=== PATIENT | male | born 1955 | race Caucasian/White ===

== ENCOUNTER 2017-09-19 20:19 | Observation (INO) | payer OTHER ==
[2017-09-20] MEDS: ALBUTEROL 0.083% (NEB) 2.5 MG/3 ML AMP NEB (00:37)
[2017-09-20] MEDS: IPRATROPIUM (NEB) 0.5 MG/2.5 ML AMP NEB (00:37)
[2017-09-20 00:54] LABS: AADO2 Arterial 88.7 mmHg (7.0-24.0); Allen Test ACCEPTAB; Arterial Base Excess 1.6 mmol/L (-3.0-3); Arterial Blood Gas Oxygen Sat 95.1 mmHG (95.0-98.0); Arterial COHb 0.5 % (0.0-3.0); Arterial Fraction of Oxyhgb 94.4 % (93.0-99.0); Arterial HCO3 26.5 mmol/L (22.0-26.0); Arterial MetHb 0.2 % (0.0-1.5); Arterial Total Hemglobin 14.4 g/dl (12.0-18.0); Arterial pCO2 42.5 mmhg (35-45); MODE NASAL CANNULA; Site Right Radial
[2017-09-20 01:02] LABS: ADD MAN DIFF? NO
[2017-09-20 01:03] LABS: BASOPHIL # 0.1 10^3/ul (0.0-0.1); EOSINOPHILS # 0.7 10^3/ul (0.0-0.5); EOSINOPHILS % 7.5 % (0.0-7.0); HEMATOCRIT 40.9 % (42.0-52.0); HEMOGLOBIN 14.2 g/dl (14.0-18.0); LYMPHOCYTES # 2.3 10^3/ul (0.8-2.9); LYMPHOCYTES % 25.8 % (15.0-51.0); MEAN CORPUSCULAR HEMOGLOBIN 34.4 pg (29.0-33.0); MEAN CORPUSCULAR HGB CONC 34.7 g/dl (32.0-37.0); MEAN PLATELET VOLUME 9.3 fl (7.4-10.4); MONOCYTES % 11.9 % (0.0-11.0); NEUTROPHIL # 4.6 10^3/ul (1.6-7.5); NEUTROPHILS % 52.9 % (39.0-77.0); PLATELET COUNT 275 10^3/UL (140-415); RED BLOOD COUNT 4.13 10^6/ul (4.70-6.10); RED CELL DISTRIBUTION WIDTH 12.4 % (11.5-14.5)
[2017-09-20 01:03] LABS: WHITE BLOOD COUNT 8.8 10^3/ul (4.8-10.8)
[2017-09-20 01:24] LABS: ALANINE AMINOTRANSFERASE 31 IU/L (13-69); ALBUMIN/GLOBULIN RATIO 0.97; ALKALINE PHOSPHATASE 93 IU/L (42-121); ANION GAP 15 (8-16); ASPARTATE AMINO TRANSFERASE 21 IU/L (15-46); BILIRUBIN,INDIRECT 0.1 mg/dl (0-1.1); BILIRUBIN,TOTAL 0.1 mg/dl (0.2-1.3); BLOOD UREA NITROGEN 14 mg/dl (7-20); CALCIUM 8.9 mg/dl (8.4-10.2); CARBON DIOXIDE 29 mmol/L (21-31); CHLORIDE 93 mmol/L (97-110); CREATININE 0.79 mg/dl (0.61-1.24); GLUCOSE 93 mg/dl (70-220); POTASSIUM 4.2 mmol/L (3.5-5.1); SODIUM 133 mmol/L (135-144); TOTAL PROTEIN 8.1 g/dl (6.1-8.1)
[2017-09-20 01:35] LABS: B-TYPE NATRIURETIC PEPTIDE 107 PG/ML (0-125)
[2017-09-20 01:36] LABS: INR 1.01; PROTIME 13.4 Sec (11.9-14.9)
[2017-09-20 01:37] LABS: PARTIAL THROMBOPLASTIN TIME 30.1 Sec (25.0-35.0)
[2017-09-20 01:49] LABS: TROPONIN-I < 0.012 ng/ml (0.00-0.12)
[2017-09-20] MEDS: FUROSEMIDE 40 MG INJ IV ×3 (02:09→18:25)
[2017-09-20] MEDS ORDERED: LEVOFLOXACIN 750MG/D5W (PMX) 150 ML IVPB (02:10)
[2017-09-20] MEDS ORDERED: HYDROCODONE/APAP (5/325) TAB PO (02:30)
[2017-09-20] MEDS ORDERED: NACL 0.9% 3 ML SYG IV (02:30)
[2017-09-20] MEDS ORDERED: ACETAMINOPHEN 325 MG TAB PO (02:30)
[2017-09-20] MEDS ORDERED: ALBUTEROL/IPRATROPIUM (NEB) 3 ML AMP HHN (02:30)
[2017-09-20] MEDS ORDERED: NA PHOSPHATE/BIPHOS 133 ML ENEMA PR (02:30)
[2017-09-20] MEDS ORDERED: ONDANSETRON 4 MG INJ IV (02:30)
[2017-09-20] MEDS ORDERED: morphine 2 MG INJ IV (02:30)
[2017-09-20] MEDS ORDERED: DOCUSATE SODIUM 100 MG CAP PO (02:30)
[2017-09-20] MEDS ORDERED: MAGNESIUM HYDROXIDE 30ML CUP PO (02:30)
[2017-09-20] MEDS ORDERED: LORAZEPAM 2 MG INJ IV (02:30)
[2017-09-20] MEDS ORDERED: NITROGLYCERIN (SL) 0.4 MG TAB SL (02:30)
[2017-09-20] MEDS ORDERED: hydrALAzine 20 MG INJ IV (02:30)
[2017-09-20 02:38] LABS: B-TYPE NATRIURETIC PEPTIDE 104 PG/ML (0-125)
[2017-09-20 03:35] LABS: FREE T4 (FREE THYROXINE) 1.35 ng/dl (0.78-2.44)
[2017-09-20] MEDS: LEVOFLOXACIN 750MG/D5W (PMX) 150 ML IVPB (04:57)
[2017-09-20] MEDS: PANTOPRAZOLE (EC) 40 MG TAB PO (05:44)
[2017-09-20] MEDS: HEPARIN 5,000 UNIT/0.5 ML VIAL SC ×2 (12:22→21:09)
[2017-09-20] MEDS: SOD CHLORIDE 0.9% 100 ML (15:26)
[2017-09-20] MEDS: IOHEXOL 300MG/ML 150 ML BTL (15:26)
[2017-09-21 04:50] LABS: ADD MAN DIFF? NO
[2017-09-21 04:53] LABS: BASOPHIL # 0.1 10^3/ul (0.0-0.1); BASOPHILS % 1.1 % (0.0-2.0); EOSINOPHILS # 0.7 10^3/ul (0.0-0.5); EOSINOPHILS % 9.5 % (0.0-7.0); HEMATOCRIT 39.1 % (42.0-52.0); HEMOGLOBIN 14.2 g/dl (14.0-18.0); LYMPHOCYTES # 2.1 10^3/ul (0.8-2.9); LYMPHOCYTES % 26.9 % (15.0-51.0); MEAN CORPUSCULAR HEMOGLOBIN 35.2 pg (29.0-33.0); MEAN CORPUSCULAR HGB CONC 36.3 g/dl (32.0-37.0); MEAN PLATELET VOLUME 9.2 fl (7.4-10.4); MONOCYTES % 12.6 % (0.0-11.0); NEUTROPHIL # 3.8 10^3/ul (1.6-7.5); NEUTROPHILS % 48.9 % (39.0-77.0); PLATELET COUNT 261 10^3/UL (140-415); RED BLOOD COUNT 4.03 10^6/ul (4.70-6.10); RED CELL DISTRIBUTION WIDTH 12.4 % (11.5-14.5)
[2017-09-21 04:53] LABS: WHITE BLOOD COUNT 7.8 10^3/ul (4.8-10.8)
[2017-09-21 05:24] LABS: CHOLESTEROL 117 mg/dl (100-200)
[2017-09-21 05:24] LABS: CHOL/HDL RATIO 3.6 RATIO; HDL CHOLESTEROL 32 mg/dl (30-78); LDL CHOLESTEROL,CALCULATED 70 mg/dl; TRIGLYCERIDES 74 mg/dl (0-149)
[2017-09-21] MEDS: FUROSEMIDE 40 MG INJ IV (05:24)
[2017-09-21] MEDS: PANTOPRAZOLE (EC) 40 MG TAB PO (05:25)
[2017-09-21] MEDS: LEVOFLOXACIN 750MG/D5W (PMX) 150 ML IVPB (05:25)
[2017-09-21 05:37] LABS: ANION GAP 14 (8-16); BLOOD UREA NITROGEN 18 mg/dl (7-20); CALCIUM 8.9 mg/dl (8.4-10.2); CARBON DIOXIDE 29 mmol/L (21-31); CHLORIDE 93 mmol/L (97-110); CREATININE 0.85 mg/dl (0.61-1.24); GLUCOSE 91 mg/dl (70-220); MAGNESIUM 2.1 mg/dl (1.7-2.5); PHOSPHORUS 4.9 mg/dl (2.5-4.9); SODIUM 132 mmol/L (135-144)
[2017-09-21 07:14] LABS: HEMOGLOBIN A1C 5.4 % (0-5.9)
[2017-09-21] MEDS: HEPARIN 5,000 UNIT/0.5 ML VIAL SC (08:57)
== END 2017-09-21 12:15 | disposition home or self-care (01) ==
LOC: E/R 20:19 → MS3 09-20 01:47
DX: J84.112 Idiopathic pulmonary fibrosis (principal); I10 Essential (primary) hypertension
CPT/HCPCS: 36415; 36600; 71045; 71260; 80048; 80053; 80061; 82803; 83036; 83735; 83880; 84100; 84439; 84443; 84484; 85025; 85610; 85730; 93005; 93306; 94664; 96374; 99285-25

== ENCOUNTER 2017-10-04 11:01 | Inpatient (IN) | payer OTHER ==
[2017-10-04] MEDS: IPRATROPIUM (NEB) 0.5 MG/2.5 ML AMP HHN (11:44)
[2017-10-04] MEDS: LEVALBUTEROL (NEB) 1.25 MG/0.5 ML AMP HHN (11:44)
[2017-10-04] MEDS: METHYLPREDNISOLONE 125 MG INJ IV ×2 (11:47→11:52)
[2017-10-04 11:50] LABS: ADD MAN DIFF? NO
[2017-10-04 11:57] LABS: WHITE BLOOD COUNT 10.3 10^3/ul (4.8-10.8)
[2017-10-04 11:57] LABS: BASOPHIL # 0.1 10^3/ul (0.0-0.1); BASOPHILS % 0.7 % (0.0-2.0); EOSINOPHILS # 0.3 10^3/ul (0.0-0.5); EOSINOPHILS % 2.6 % (0.0-7.0); HEMOGLOBIN 13.6 g/dl (14.0-18.0); LYMPHOCYTES # 1.5 10^3/ul (0.8-2.9); LYMPHOCYTES % 14.8 % (15.0-51.0); MEAN CORPUSCULAR HGB CONC 34.9 g/dl (32.0-37.0); MEAN CORPUSCULAR VOLUME 100.3 fl (82.0-101.0); MEAN PLATELET VOLUME 9.2 fl (7.4-10.4); MONOCYTE # 1.1 10^3/ul (0.3-0.9); MONOCYTES % 11.1 % (0.0-11.0); NEUTROPHIL # 7.2 10^3/ul (1.6-7.5); NEUTROPHILS % 70.1 % (39.0-77.0); PLATELET COUNT 283 10^3/UL (140-415); RED BLOOD COUNT 3.89 10^6/ul (4.70-6.10); RED CELL DISTRIBUTION WIDTH 12.9 % (11.5-14.5)
[2017-10-04 12:17] LABS: AADO2 Arterial 224.6 mmHg (7.0-24.0); Allen Test ACCEPTAB; Arterial Base Excess 3.7 mmol/L (-3.0-3); Arterial Blood Gas Oxygen Sat 97.5 mmHG (95.0-98.0); Arterial COHb 1.1 % (0.0-3.0); Arterial Fraction of Oxyhgb 96.2 % (93.0-99.0); Arterial HCO3 26.3 mmol/L (22.0-26.0); Arterial MetHb 0.2 % (0.0-1.5); Arterial Total Hemglobin 14.1 g/dl (12.0-18.0); Arterial pCO2 33.7 mmhg (35-45); Blood Gas IEPAP 15/5; MODE MASK - BIPAP; POTASSIUM 3.9 mmol/L (3.5-5.1); Site Right Radial
[2017-10-04 12:18] LABS: ALANINE AMINOTRANSFERASE 23 IU/L (13-69); ALBUMIN 3.7 g/dl (3.3-4.9); ALBUMIN/GLOBULIN RATIO 0.92; ALKALINE PHOSPHATASE 86 IU/L (42-121); ANION GAP 16 (8-16); ASPARTATE AMINO TRANSFERASE 20 IU/L (15-46); BILIRUBIN,INDIRECT 0.4 mg/dl (0-1.1); BILIRUBIN,TOTAL 0.4 mg/dl (0.2-1.3); BLOOD UREA NITROGEN 12 mg/dl (7-20); CALCIUM 8.4 mg/dl (8.4-10.2); CARBON DIOXIDE 26 mmol/L (21-31); CHLORIDE 94 mmol/L (97-110); CREATININE 0.84 mg/dl (0.61-1.24); GLUCOSE 162 mg/dl (70-220); SODIUM 132 mmol/L (135-144); TOTAL PROTEIN 7.7 g/dl (6.1-8.1)
[2017-10-04 12:27] LABS: LACTIC ACID 2.7 mmol/L (0.5-2.0)
[2017-10-04 12:33] LABS: B-TYPE NATRIURETIC PEPTIDE 764 PG/ML (0-125); TROPONIN-I < 0.012 ng/ml (0.00-0.12)
[2017-10-04 12:51] LABS: INR 1.22; PROTIME 15.6 Sec (11.9-14.9); PT RATIO 1.2
[2017-10-04 12:52] LABS: PARTIAL THROMBOPLASTIN TIME 29.1 Sec (25.0-35.0)
[2017-10-04] MEDS: SOD CHLORIDE 0.9% IV (12:56)
[2017-10-04] MEDS: CEFEPIME 1GM/50 ML (PMX) 50 ML IVPB (12:56)
[2017-10-04 13:29] LABS: ADD UMIC NO; UR ASCORBIC ACID NEGATIVE (NEGATIVE); UR BILIRUBIN (Dip) NEGATIVE (NEGATIVE); UR BLOOD (Dip) NEGATIVE (NEGATIVE); UR CLARITY CLEAR (CLEAR); UR COLOR YELLOW (YELLOW); UR GLUCOSE (Dip) NEGATIVE (NEGATIVE); UR KETONES (Dip) NEGATIVE (NEGATIVE); UR LEUKOCYTE ESTERASE (Dip) NEGATIVE Leu/ul (NEGATIVE); UR NITRITE (Dip) NEGATIVE (NEGATIVE); UR SPECIFIC GRAVITY (Dip) 1.018 (1.003-1.030); UR TOTAL PROTEIN (Dip) NEGATIVE (NEGATIVE); UR UROBILINOGEN (Dip) 2+ mg/dL (NEGATIVE)
[2017-10-04] MEDS: VANCOMYCIN 1 GM (PMX) 250 ML IVPB (13:38)
[2017-10-04 14:29] LABS: LACTIC ACID 1.5 mmol/L (0.5-2.0)
[2017-10-04] MEDS ORDERED: ONDANSETRON 4 MG INJ IV (15:00)
[2017-10-04] MEDS: LEVOFLOXACIN 750MG/D5W (PMX) 150 ML IVPB (15:48)
[2017-10-04] MEDS: PANTOPRAZOLE (EC) 40 MG TAB PO (15:48)
[2017-10-04] MEDS: METHYLPREDNISOLONE 40 MG INJ IV ×2 (15:48→22:02)
[2017-10-04] MEDS: ALBUTEROL/IPRATROPIUM (NEB) 3 ML AMP HHN ×2 (17:22→21:30)
[2017-10-04 17:48] LABS: LACTIC ACID 1.2 mmol/L (0.5-2.0)
[2017-10-04] MEDS: AMLODIPINE 5 MG TAB PO (21:00)
[2017-10-04] MEDS: DOCUSATE SODIUM 100 MG CAP PO (21:21)
[2017-10-04] MEDS: SALMETEROL/FLUTICASONE 250/50 INHA INH (21:21)
[2017-10-05] MEDS: ALBUTEROL/IPRATROPIUM (NEB) 3 ML AMP HHN ×5 (00:51→20:16)
[2017-10-05] MEDS: PANTOPRAZOLE (EC) 40 MG TAB PO (06:00)
[2017-10-05] MEDS: METHYLPREDNISOLONE 40 MG INJ IV ×3 (06:10→21:16)
[2017-10-05 08:19] LABS: LACTIC ACID 3.8 mmol/L (0.5-2.0)
[2017-10-05] MEDS: DOCUSATE SODIUM 100 MG CAP PO ×2 (09:16→21:16)
[2017-10-05] MEDS: LISINOPRIL 20 MG TAB PO (09:16)
[2017-10-05] MEDS: SALMETEROL/FLUTICASONE 250/50 INHA INH ×2 (11:33→21:17)
[2017-10-05] MEDS: LORATADINE 10 MG TAB PO (11:33)
[2017-10-05] MEDS: LEVOFLOXACIN 750MG/D5W (PMX) 150 ML IVPB (15:52)
[2017-10-05] MEDS: AMLODIPINE 5 MG TAB PO (21:00)
[2017-10-06] MEDS: ALBUTEROL/IPRATROPIUM (NEB) 3 ML AMP HHN ×4 (01:19→13:50)
[2017-10-06 05:55] LABS: ADD MAN DIFF? NO
[2017-10-06 06:00] LABS: WHITE BLOOD COUNT 20.6 10^3/ul (4.8-10.8)
[2017-10-06 06:00] LABS: BASOPHILS % 0.1 % (0.0-2.0); HEMATOCRIT 34.2 % (42.0-52.0); HEMOGLOBIN 11.8 g/dl (14.0-18.0); LYMPHOCYTES # 0.8 10^3/ul (0.8-2.9); LYMPHOCYTES % 3.9 % (15.0-51.0); MEAN CORPUSCULAR HGB CONC 34.5 g/dl (32.0-37.0); MEAN CORPUSCULAR VOLUME 101.5 fl (82.0-101.0); MEAN PLATELET VOLUME 9.4 fl (7.4-10.4); NEUTROPHIL # 18.5 10^3/ul (1.6-7.5); PLATELET COUNT 236 10^3/UL (140-415); RED BLOOD COUNT 3.37 10^6/ul (4.70-6.10); RED CELL DISTRIBUTION WIDTH 13.4 % (11.5-14.5)
[2017-10-06 06:26] LABS: BLOOD UREA NITROGEN 17 mg/dl (7-20); CALCIUM 8.8 mg/dl (8.4-10.2); CARBON DIOXIDE 26 mmol/L (21-31); CHLORIDE 99 mmol/L (97-110); CREATININE 0.66 mg/dl (0.61-1.24); GLUCOSE 153 mg/dl (70-220); MAGNESIUM 2.2 mg/dl (1.7-2.5); PHOSPHORUS 4.5 mg/dl (2.5-4.9); SODIUM 134 mmol/L (135-144)
[2017-10-06] MEDS: PANTOPRAZOLE (EC) 40 MG TAB PO (06:32)
[2017-10-06] MEDS: METHYLPREDNISOLONE 40 MG INJ IV ×3 (06:32→21:02)
[2017-10-06 07:24] LABS: ANION GAP 13 (8-16)
[2017-10-06 07:35] LABS: POTASSIUM 4.4 mmol/L (3.5-5.1)
[2017-10-06 08:13] LABS: AADO2 Arterial 465.6 mmHg (7.0-24.0); Allen Test ACCEPTAB; Arterial Base Excess 1.6 mmol/L (-3.0-3); Arterial Blood Gas Oxygen Sat 90.4 mmHG (95.0-98.0); Arterial COHb 0.4 % (0.0-3.0); Arterial Fraction of Oxyhgb 89.8 % (93.0-99.0); Arterial HCO3 26.4 mmol/L (22.0-26.0); Arterial MetHb 0.3 % (0.0-1.5); Arterial Total Hemglobin 13.3 g/dl (12.0-18.0); Arterial pCO2 42.2 mmhg (35-45); MODE HFNC; Site Right Radial
[2017-10-06] MEDS: LISINOPRIL 20 MG TAB PO (08:54)
[2017-10-06] MEDS: SALMETEROL/FLUTICASONE 250/50 INHA INH ×2 (08:55→21:02)
[2017-10-06] MEDS: LORATADINE 10 MG TAB PO (08:55)
[2017-10-06] MEDS: DOCUSATE SODIUM 100 MG CAP PO ×2 (08:55→21:02)
[2017-10-06] MEDS: FUROSEMIDE 20 MG INJ IV (11:33)
[2017-10-06] MEDS: ENOXAPARIN 40 MG/0.4 ML SYG SC (11:35)
[2017-10-06] MEDS: LEVOFLOXACIN 750MG/D5W (PMX) 150 ML IVPB (15:54)
[2017-10-06] MEDS: AMLODIPINE 5 MG TAB PO (21:00)
[2017-10-07 05:46] LABS: ADD MAN DIFF? NO
[2017-10-07 05:56] LABS: WHITE BLOOD COUNT 16.4 10^3/ul (4.8-10.8)
[2017-10-07 05:56] LABS: BASOPHILS % 0.1 % (0.0-2.0); HEMATOCRIT 35.5 % (42.0-52.0); HEMOGLOBIN 12.4 g/dl (14.0-18.0); LYMPHOCYTES # 0.8 10^3/ul (0.8-2.9); LYMPHOCYTES % 4.8 % (15.0-51.0); MEAN CORPUSCULAR HEMOGLOBIN 34.8 pg (29.0-33.0); MEAN CORPUSCULAR HGB CONC 34.9 g/dl (32.0-37.0); MEAN CORPUSCULAR VOLUME 99.7 fl (82.0-101.0); MEAN PLATELET VOLUME 9.6 fl (7.4-10.4); MONOCYTE # 1.1 10^3/ul (0.3-0.9); MONOCYTES % 6.8 % (0.0-11.0); NEUTROPHIL # 14.4 10^3/ul (1.6-7.5); NEUTROPHILS % 87.8 % (39.0-77.0); PLATELET COUNT 230 10^3/UL (140-415); RED BLOOD COUNT 3.56 10^6/ul (4.70-6.10); RED CELL DISTRIBUTION WIDTH 13.1 % (11.5-14.5)
[2017-10-07 06:21] LABS: LACTIC ACID 1.7 mmol/L (0.5-2.0)
[2017-10-07] MEDS: METHYLPREDNISOLONE 40 MG INJ IV ×3 (06:26→21:10)
[2017-10-07] MEDS: PANTOPRAZOLE (EC) 40 MG TAB PO (06:26)
[2017-10-07 06:54] LABS: ANION GAP 12 (8-16)
[2017-10-07 07:14] LABS: BLOOD UREA NITROGEN 20 mg/dl (7-20); CALCIUM 8.7 mg/dl (8.4-10.2); CARBON DIOXIDE 28 mmol/L (21-31); CHLORIDE 98 mmol/L (97-110); CREATININE 0.66 mg/dl (0.61-1.24); GLUCOSE 133 mg/dl (70-220); MAGNESIUM 2.2 mg/dl (1.7-2.5); POTASSIUM 4.7 mmol/L (3.5-5.1); SODIUM 133 mmol/L (135-144)
[2017-10-07] MEDS: SALMETEROL/FLUTICASONE 250/50 INHA INH ×2 (08:04→21:10)
[2017-10-07] MEDS: LISINOPRIL 20 MG TAB PO (08:05)
[2017-10-07] MEDS: FUROSEMIDE 20 MG INJ IV (08:05)
[2017-10-07] MEDS: DOCUSATE SODIUM 100 MG CAP PO ×2 (08:05→21:10)
[2017-10-07] MEDS: LORATADINE 10 MG TAB PO (08:05)
[2017-10-07] MEDS: ENOXAPARIN 40 MG/0.4 ML SYG SC (08:21)
[2017-10-07] MEDS: LEVOFLOXACIN 750MG/D5W (PMX) 150 ML IVPB (15:45)
[2017-10-07] MEDS: AMLODIPINE 5 MG TAB PO (21:10)
[2017-10-08] MEDS: METHYLPREDNISOLONE 40 MG INJ IV ×3 (05:10→20:29)
[2017-10-08] MEDS: PANTOPRAZOLE (EC) 40 MG TAB PO (05:10)
[2017-10-08] MEDS: FUROSEMIDE 40 MG INJ IV ×2 (05:11→18:32)
[2017-10-08 06:22] LABS: ADD MAN DIFF? NO
[2017-10-08 06:29] LABS: BASOPHILS % 0.1 % (0.0-2.0); HEMATOCRIT 36.5 % (42.0-52.0); HEMOGLOBIN 12.5 g/dl (14.0-18.0); LYMPHOCYTES # 1.1 10^3/ul (0.8-2.9); LYMPHOCYTES % 9.1 % (15.0-51.0); MEAN CORPUSCULAR HEMOGLOBIN 34.4 pg (29.0-33.0); MEAN CORPUSCULAR HGB CONC 34.2 g/dl (32.0-37.0); MEAN CORPUSCULAR VOLUME 100.6 fl (82.0-101.0); MONOCYTE # 0.8 10^3/ul (0.3-0.9); MONOCYTES % 6.5 % (0.0-11.0); NEUTROPHIL # 10.3 10^3/ul (1.6-7.5); NEUTROPHILS % 83.7 % (39.0-77.0); PLATELET COUNT 238 10^3/UL (140-415); RED BLOOD COUNT 3.63 10^6/ul (4.70-6.10); RED CELL DISTRIBUTION WIDTH 13.2 % (11.5-14.5)
[2017-10-08 06:29] LABS: WHITE BLOOD COUNT 12.3 10^3/ul (4.8-10.8)
[2017-10-08 06:55] LABS: ANION GAP 14 (8-16); BLOOD UREA NITROGEN 21 mg/dl (7-20); CALCIUM 8.9 mg/dl (8.4-10.2); CARBON DIOXIDE 28 mmol/L (21-31); CHLORIDE 94 mmol/L (97-110); CREATININE 0.55 mg/dl (0.61-1.24); GLUCOSE 126 mg/dl (70-220); SODIUM 131 mmol/L (135-144)
[2017-10-08] MEDS: ALBUTEROL/IPRATROPIUM (NEB) 3 ML AMP HHN ×3 (07:46→19:19)
[2017-10-08 07:49] LABS: Allen Test ACCEPTAB; Arterial Base Excess 7.1 mmol/L (-3.0-3); Arterial Blood Gas Oxygen Sat 94.1 mmHG (95.0-98.0); Arterial COHb 0.6 % (0.0-3.0); Arterial Fraction of Oxyhgb 93.3 % (93.0-99.0); Arterial HCO3 31.6 mmol/L (22.0-26.0); Arterial MetHb 0.2 % (0.0-1.5); Arterial Total Hemglobin 14.7 g/dl (12.0-18.0); Arterial pCO2 44.1 mmhg (35-45); MODE HFNC; Site Right Radial
[2017-10-08] MEDS: LORATADINE 10 MG TAB PO (09:08)
[2017-10-08] MEDS: DOCUSATE SODIUM 100 MG CAP PO ×2 (09:08→20:29)
[2017-10-08] MEDS: LISINOPRIL 20 MG TAB PO (09:08)
[2017-10-08] MEDS: ENOXAPARIN 40 MG/0.4 ML SYG SC (09:32)
[2017-10-08] MEDS: LEVOFLOXACIN 750MG/D5W (PMX) 150 ML IVPB (15:27)
[2017-10-08] MEDS: AMLODIPINE 5 MG TAB PO (20:29)
[2017-10-09] MEDS: METHYLPREDNISOLONE 40 MG INJ IV ×3 (05:18→22:12)
[2017-10-09] MEDS: FUROSEMIDE 40 MG INJ IV ×2 (05:19→17:34)
[2017-10-09] MEDS: LEVOFLOXACIN 750 MG TABLET PO (05:19)
[2017-10-09] MEDS: PANTOPRAZOLE (EC) 40 MG TAB PO (05:19)
[2017-10-09 06:10] LABS: ADD MAN DIFF? NO
[2017-10-09 06:24] LABS: WHITE BLOOD COUNT 12.2 10^3/ul (4.8-10.8)
[2017-10-09 06:24] LABS: BASOPHILS % 0.2 % (0.0-2.0); HEMATOCRIT 40.3 % (42.0-52.0); HEMOGLOBIN 13.9 g/dl (14.0-18.0); LYMPHOCYTES # 1.4 10^3/ul (0.8-2.9); LYMPHOCYTES % 11.2 % (15.0-51.0); MEAN CORPUSCULAR HEMOGLOBIN 34.5 pg (29.0-33.0); MEAN CORPUSCULAR HGB CONC 34.5 g/dl (32.0-37.0); MEAN PLATELET VOLUME 9.9 fl (7.4-10.4); NEUTROPHIL # 9.7 10^3/ul (1.6-7.5); NEUTROPHILS % 79.5 % (39.0-77.0); PLATELET COUNT 262 10^3/UL (140-415); RED BLOOD COUNT 4.03 10^6/ul (4.70-6.10); RED CELL DISTRIBUTION WIDTH 12.9 % (11.5-14.5)
[2017-10-09 06:43] LABS: ANION GAP 15 (8-16); BLOOD UREA NITROGEN 33 mg/dl (7-20); CALCIUM 9.2 mg/dl (8.4-10.2); CARBON DIOXIDE 33 mmol/L (21-31); CHLORIDE 93 mmol/L (97-110); CREATININE 0.87 mg/dl (0.61-1.24); GLUCOSE 123 mg/dl (70-220); POTASSIUM 4.5 mmol/L (3.5-5.1); SODIUM 136 mmol/L (135-144)
[2017-10-09] MEDS: ALBUTEROL/IPRATROPIUM (NEB) 3 ML AMP HHN ×3 (07:56→19:51)
[2017-10-09] MEDS: LISINOPRIL 20 MG TAB PO (08:17)
[2017-10-09] MEDS: LORATADINE 10 MG TAB PO (08:17)
[2017-10-09] MEDS: DOCUSATE SODIUM 100 MG CAP PO ×2 (08:17→21:41)
[2017-10-09] MEDS: ENOXAPARIN 40 MG/0.4 ML SYG SC (08:19)
[2017-10-09] MEDS: AMLODIPINE 5 MG TAB PO (21:42)
[2017-10-10] MEDS: FUROSEMIDE 40 MG INJ IV ×2 (05:25→09:39)
[2017-10-10] MEDS: LEVOFLOXACIN 750 MG TABLET PO (05:26)
[2017-10-10] MEDS: METHYLPREDNISOLONE 40 MG INJ IV ×3 (05:26→21:54)
[2017-10-10] MEDS: PANTOPRAZOLE (EC) 40 MG TAB PO (05:26)
[2017-10-10] MEDS: LACTATED RINGER'S 250 ML IV (07:30)
[2017-10-10] MEDS: ALBUTEROL/IPRATROPIUM (NEB) 3 ML AMP HHN ×3 (07:35→19:13)
[2017-10-10] MEDS ORDERED: LISINOPRIL 20 MG TAB PO (09:00)
[2017-10-10] MEDS: LISINOPRIL 20 MG TAB PO (09:39)
[2017-10-10] MEDS: DOCUSATE SODIUM 100 MG CAP PO ×2 (09:40→20:49)
[2017-10-10] MEDS: SILDENAFIL 20 MG TAB PO ×3 (09:40→21:00)
[2017-10-10] MEDS: LORATADINE 10 MG TAB PO (09:40)
[2017-10-10] MEDS: ENOXAPARIN 40 MG/0.4 ML SYG SC (09:43)
[2017-10-10] MEDS: AMLODIPINE 5 MG TAB PO (20:50)
[2017-10-11] MEDS: METHYLPREDNISOLONE 40 MG INJ IV ×3 (05:09→20:30)
[2017-10-11] MEDS: PANTOPRAZOLE (EC) 40 MG TAB PO (05:10)
[2017-10-11] MEDS: LEVOFLOXACIN 750 MG TABLET PO (05:58)
[2017-10-11 06:16] LABS: ADD MAN DIFF? NO
[2017-10-11 06:37] LABS: BASOPHILS % 0.4 % (0.0-2.0); HEMATOCRIT 39.2 % (42.0-52.0); LYMPHOCYTES # 1.3 10^3/ul (0.8-2.9); LYMPHOCYTES % 11.3 % (15.0-51.0); MEAN CORPUSCULAR HGB CONC 35.7 g/dl (32.0-37.0); MEAN PLATELET VOLUME 10.1 fl (7.4-10.4); MONOCYTE # 0.8 10^3/ul (0.3-0.9); MONOCYTES % 7.3 % (0.0-11.0); NEUTROPHIL # 8.7 10^3/ul (1.6-7.5); PLATELET COUNT 262 10^3/UL (140-415); RED CELL DISTRIBUTION WIDTH 12.2 % (11.5-14.5)
[2017-10-11 06:53] LABS: ALANINE AMINOTRANSFERASE 21 IU/L (13-69); ALBUMIN 3.4 g/dl (3.3-4.9); ALBUMIN/GLOBULIN RATIO 0.87; ALKALINE PHOSPHATASE 71 IU/L (42-121); ANION GAP 11 (8-16); ASPARTATE AMINO TRANSFERASE 23 IU/L (15-46); BILIRUBIN,INDIRECT 0.8 mg/dl (0-1.1); BILIRUBIN,TOTAL 0.8 mg/dl (0.2-1.3); BLOOD UREA NITROGEN 40 mg/dl (7-20); CALCIUM 8.9 mg/dl (8.4-10.2); CARBON DIOXIDE 31 mmol/L (21-31); CHLORIDE 92 mmol/L (97-110); CREATININE 0.75 mg/dl (0.61-1.24); GLUCOSE 137 mg/dl (70-220); POTASSIUM 4.5 mmol/L (3.5-5.1); SODIUM 129 mmol/L (135-144); TOTAL PROTEIN 7.3 g/dl (6.1-8.1)
[2017-10-11] MEDS: ALBUTEROL/IPRATROPIUM (NEB) 3 ML AMP HHN ×3 (07:54→19:28)
[2017-10-11] MEDS: LORATADINE 10 MG TAB PO (09:52)
[2017-10-11] MEDS: DOCUSATE SODIUM 100 MG CAP PO ×2 (09:52→20:29)
[2017-10-11] MEDS: FUROSEMIDE 40 MG INJ IV (09:52)
[2017-10-11] MEDS: LISINOPRIL 20 MG TAB PO (09:53)
[2017-10-11] MEDS: ENOXAPARIN 40 MG/0.4 ML SYG SC (09:57)
[2017-10-11] MEDS: SILDENAFIL 20 MG TAB PO ×3 (09:59→20:30)
[2017-10-11] MEDS: AMLODIPINE 5 MG TAB PO (20:30)
[2017-10-12] MEDS: METHYLPREDNISOLONE 40 MG INJ IV ×3 (05:43→22:15)
[2017-10-12] MEDS: PANTOPRAZOLE (EC) 40 MG TAB PO (05:43)
[2017-10-12] MEDS: LEVOFLOXACIN 750 MG TABLET PO (05:43)
[2017-10-12] MEDS: ALBUTEROL/IPRATROPIUM (NEB) 3 ML AMP HHN ×3 (07:49→20:08)
[2017-10-12 07:53] LABS: ADD MAN DIFF? NO
[2017-10-12 07:55] LABS: BASOPHILS % 0.2 % (0.0-2.0); HEMATOCRIT 38.2 % (42.0-52.0); HEMOGLOBIN 13.6 g/dl (14.0-18.0); LYMPHOCYTES # 1.2 10^3/ul (0.8-2.9); LYMPHOCYTES % 10.7 % (15.0-51.0); MEAN CORPUSCULAR HEMOGLOBIN 34.4 pg (29.0-33.0); MEAN CORPUSCULAR HGB CONC 35.6 g/dl (32.0-37.0); MEAN CORPUSCULAR VOLUME 96.7 fl (82.0-101.0); MEAN PLATELET VOLUME 10.1 fl (7.4-10.4); MONOCYTES % 8.7 % (0.0-11.0); NEUTROPHIL # 9.2 10^3/ul (1.6-7.5); NEUTROPHILS % 78.5 % (39.0-77.0); PLATELET COUNT 239 10^3/UL (140-415); RED BLOOD COUNT 3.95 10^6/ul (4.70-6.10); RED CELL DISTRIBUTION WIDTH 11.9 % (11.5-14.5)
[2017-10-12 07:55] LABS: WHITE BLOOD COUNT 11.6 10^3/ul (4.8-10.8)
[2017-10-12 08:21] LABS: ANION GAP 11 (8-16); BLOOD UREA NITROGEN 36 mg/dl (7-20); CALCIUM 8.5 mg/dl (8.4-10.2); CARBON DIOXIDE 30 mmol/L (21-31); CHLORIDE 92 mmol/L (97-110); CREATININE 0.69 mg/dl (0.61-1.24); GLUCOSE 93 mg/dl (70-220); MAGNESIUM 2.2 mg/dl (1.7-2.5); POTASSIUM 4.7 mmol/L (3.5-5.1); SODIUM 128 mmol/L (135-144)
[2017-10-12] MEDS: LISINOPRIL 20 MG TAB PO ×2 (09:00→14:00)
[2017-10-12] MEDS: DOCUSATE SODIUM 100 MG CAP PO ×2 (09:36→21:03)
[2017-10-12] MEDS: SILDENAFIL 20 MG TAB PO ×3 (09:36→21:00)
[2017-10-12] MEDS: LORATADINE 10 MG TAB PO (09:36)
[2017-10-12] MEDS: FUROSEMIDE 40 MG INJ IV (09:36)
[2017-10-12] MEDS: ENOXAPARIN 40 MG/0.4 ML SYG SC (09:43)
[2017-10-12 11:10] LABS: OSMOLALITY 275 mOsm/kg (280-295)
[2017-10-12] MEDS: TRIMETHOPRIM/SULFAMETHOX (SS) TAB PO (12:33)
[2017-10-12] MEDS: LACTOBACILLUS RHAMNOSUS CAP PO ×2 (12:34→21:03)
[2017-10-12 13:14] LABS: ADD UMIC NO; UR ASCORBIC ACID 40 mg/dL (NEGATIVE); UR BILIRUBIN (Dip) NEGATIVE (NEGATIVE); UR BLOOD (Dip) NEGATIVE (NEGATIVE); UR CLARITY CLEAR (CLEAR); UR COLOR YELLOW (YELLOW); UR GLUCOSE (Dip) NEGATIVE (NEGATIVE); UR KETONES (Dip) NEGATIVE (NEGATIVE); UR LEUKOCYTE ESTERASE (Dip) NEGATIVE Leu/ul (NEGATIVE); UR NITRITE (Dip) NEGATIVE (NEGATIVE); UR SPECIFIC GRAVITY (Dip) 1.029 (1.003-1.030); UR TOTAL PROTEIN (Dip) NEGATIVE (NEGATIVE); UR UROBILINOGEN (Dip) NEGATIVE (NEGATIVE)
[2017-10-12 13:55] LABS: OSMOLALITY,URINE 1050 mOsm/kg (250-1200)
[2017-10-12] MEDS: AMLODIPINE 5 MG TAB PO (21:00)
[2017-10-13 00:04] LABS: SODIUM,URINE RANDOM 34 mmol/L (30-90)
[2017-10-13] MEDS: LEVOFLOXACIN 750 MG TABLET PO (05:32)
[2017-10-13] MEDS: PANTOPRAZOLE (EC) 40 MG TAB PO (05:32)
[2017-10-13] MEDS: METHYLPREDNISOLONE 40 MG INJ IV ×3 (05:32→22:06)
[2017-10-13 07:16] LABS: ADD MAN DIFF? NO
[2017-10-13 07:25] LABS: BASOPHILS % 0.2 % (0.0-2.0); HEMATOCRIT 38.7 % (42.0-52.0); HEMOGLOBIN 13.8 g/dl (14.0-18.0); LYMPHOCYTES # 1.4 10^3/ul (0.8-2.9); LYMPHOCYTES % 10.9 % (15.0-51.0); MEAN CORPUSCULAR HEMOGLOBIN 34.6 pg (29.0-33.0); MEAN CORPUSCULAR HGB CONC 35.7 g/dl (32.0-37.0); MEAN PLATELET VOLUME 10.4 fl (7.4-10.4); MONOCYTE # 1.1 10^3/ul (0.3-0.9); MONOCYTES % 8.7 % (0.0-11.0); NEUTROPHIL # 10.2 10^3/ul (1.6-7.5); NEUTROPHILS % 78.5 % (39.0-77.0); PLATELET COUNT 238 10^3/UL (140-415); RED BLOOD COUNT 3.99 10^6/ul (4.70-6.10); RED CELL DISTRIBUTION WIDTH 11.9 % (11.5-14.5)
[2017-10-13] MEDS: ALBUTEROL/IPRATROPIUM (NEB) 3 ML AMP HHN ×3 (07:41→19:47)
[2017-10-13 07:49] LABS: ANION GAP 13 (8-16); BLOOD UREA NITROGEN 41 mg/dl (7-20); CALCIUM 8.6 mg/dl (8.4-10.2); CARBON DIOXIDE 29 mmol/L (21-31); CHLORIDE 91 mmol/L (97-110); CREATININE 0.74 mg/dl (0.61-1.24); GLUCOSE 108 mg/dl (70-220); POTASSIUM 4.8 mmol/L (3.5-5.1); SODIUM 128 mmol/L (135-144)
[2017-10-13] MEDS: DOCUSATE SODIUM 100 MG CAP PO ×2 (08:49→21:21)
[2017-10-13] MEDS: FUROSEMIDE 40 MG INJ IV (08:49)
[2017-10-13] MEDS: TRIMETHOPRIM/SULFAMETHOX (SS) TAB PO (08:49)
[2017-10-13] MEDS: LACTOBACILLUS RHAMNOSUS CAP PO ×2 (08:49→21:21)
[2017-10-13] MEDS: LORATADINE 10 MG TAB PO (08:49)
[2017-10-13] MEDS: SILDENAFIL 20 MG TAB PO ×3 (08:50→21:22)
[2017-10-13] MEDS: LISINOPRIL 20 MG TAB PO (08:50)
[2017-10-13 08:51] LABS: URIC ACID 3.6 mg/dl (3.1-7.9)
[2017-10-13] MEDS: ENOXAPARIN 40 MG/0.4 ML SYG SC (08:54)
[2017-10-13 09:21] LABS: THYROID STIMULATING HORMONE 0.931 MIU/L (0.465-4.680)
[2017-10-13] MEDS: AMLODIPINE 5 MG TAB PO (21:21)
[2017-10-14] MEDS: PANTOPRAZOLE (EC) 40 MG TAB PO (05:38)
[2017-10-14] MEDS: METHYLPREDNISOLONE 40 MG INJ IV ×3 (05:38→21:32)
[2017-10-14] MEDS: LEVOFLOXACIN 750 MG TABLET PO (05:38)
[2017-10-14 06:11] LABS: AADO2 Arterial 617.8 mmHg (7.0-24.0); Allen Test ACCEPTAB; Arterial Base Excess 3.7 mmol/L (-3.0-3); Arterial Blood Gas Oxygen Sat 86.1 mmHG (95.0-98.0); Arterial COHb 0.5 % (0.0-3.0); Arterial Fraction of Oxyhgb 85.4 % (93.0-99.0); Arterial HCO3 28.6 mmol/L (22.0-26.0); Arterial MetHb 0.3 % (0.0-1.5); Arterial Total Hemglobin 14.8 g/dl (12.0-18.0); MODE HFNC; Site Left Radial
[2017-10-14 07:38] LABS: ADD MAN DIFF? NO
[2017-10-14 07:51] LABS: BASOPHILS % 0.2 % (0.0-2.0); EOSINOPHILS % 0.1 % (0.0-7.0); HEMATOCRIT 38.3 % (42.0-52.0); HEMOGLOBIN 13.6 g/dl (14.0-18.0); LYMPHOCYTES # 1.2 10^3/ul (0.8-2.9); LYMPHOCYTES % 8.9 % (15.0-51.0); MEAN CORPUSCULAR HEMOGLOBIN 34.6 pg (29.0-33.0); MEAN CORPUSCULAR HGB CONC 35.5 g/dl (32.0-37.0); MEAN CORPUSCULAR VOLUME 97.5 fl (82.0-101.0); MEAN PLATELET VOLUME 10.5 fl (7.4-10.4); MONOCYTE # 1.1 10^3/ul (0.3-0.9); MONOCYTES % 7.7 % (0.0-11.0); NEUTROPHIL # 11.4 10^3/ul (1.6-7.5); PLATELET COUNT 236 10^3/UL (140-415); RED BLOOD COUNT 3.93 10^6/ul (4.70-6.10); RED CELL DISTRIBUTION WIDTH 11.9 % (11.5-14.5)
[2017-10-14 08:04] LABS: ANION GAP 13 (8-16); BLOOD UREA NITROGEN 43 mg/dl (7-20); CALCIUM 8.8 mg/dl (8.4-10.2); CARBON DIOXIDE 28 mmol/L (21-31); CHLORIDE 93 mmol/L (97-110); CREATININE 0.79 mg/dl (0.61-1.24); GLUCOSE 108 mg/dl (70-220); POTASSIUM 4.9 mmol/L (3.5-5.1); SODIUM 129 mmol/L (135-144)
[2017-10-14] MEDS: ALBUTEROL/IPRATROPIUM (NEB) 3 ML AMP HHN ×3 (08:07→19:09)
[2017-10-14] MEDS: SILDENAFIL 20 MG TAB PO ×4 (09:00→21:00)
[2017-10-14] MEDS: DOCUSATE SODIUM 100 MG CAP PO ×2 (09:16→21:32)
[2017-10-14] MEDS: LACTOBACILLUS RHAMNOSUS CAP PO ×2 (09:16→21:32)
[2017-10-14] MEDS: FUROSEMIDE 40 MG INJ IV (09:17)
[2017-10-14] MEDS: LISINOPRIL 20 MG TAB PO (09:17)
[2017-10-14] MEDS: LORATADINE 10 MG TAB PO (09:17)
[2017-10-14] MEDS: TRIMETHOPRIM/SULFAMETHOX (SS) TAB PO (09:17)
[2017-10-14] MEDS: ENOXAPARIN 40 MG/0.4 ML SYG SC (09:24)
[2017-10-14] MEDS: FAMOTIDINE 20 MG INJ IV (17:17)
[2017-10-14 17:22] LABS: CREATININE, RANDOM URINE 120 mg/dL (20-370); MICROALBUMIN 0.5 mg/dL; MICROALBUMIN/CREATININE RATIO 4 (<30)
[2017-10-14] MEDS: AMLODIPINE 5 MG TAB PO (21:00)
[2017-10-15] MEDS: LEVOFLOXACIN 750 MG TABLET PO (05:25)
[2017-10-15] MEDS: PANTOPRAZOLE (EC) 40 MG TAB PO (05:25)
[2017-10-15] MEDS: METHYLPREDNISOLONE 40 MG INJ IV ×3 (05:26→21:05)
[2017-10-15 06:48] LABS: ANION GAP 10 (8-16); BLOOD UREA NITROGEN 41 mg/dl (7-20); CALCIUM 8.4 mg/dl (8.4-10.2); CARBON DIOXIDE 29 mmol/L (21-31); CHLORIDE 92 mmol/L (97-110); CREATININE 0.69 mg/dl (0.61-1.24); GLUCOSE 116 mg/dl (70-220); MAGNESIUM 2.3 mg/dl (1.7-2.5); PHOSPHORUS 4.2 mg/dl (2.5-4.9); SODIUM 126 mmol/L (135-144)
[2017-10-15] MEDS: ALBUTEROL/IPRATROPIUM (NEB) 3 ML AMP HHN ×3 (08:16→19:06)
[2017-10-15] MEDS: TRIMETHOPRIM/SULFAMETHOX (SS) TAB PO (09:00)
[2017-10-15] MEDS: SILDENAFIL 20 MG TAB PO ×3 (09:00→21:00)
[2017-10-15] MEDS: LISINOPRIL 20 MG TAB PO (09:00)
[2017-10-15] MEDS: DOCUSATE SODIUM 100 MG CAP PO ×2 (09:00→21:06)
[2017-10-15] MEDS: FUROSEMIDE 20 MG TAB PO (09:00)
[2017-10-15] MEDS: LACTOBACILLUS RHAMNOSUS CAP PO ×2 (09:00→21:06)
[2017-10-15] MEDS: DEMECLOCYCLINE 150 MG TAB PO ×4 (09:01→21:06)
[2017-10-15] MEDS: LORATADINE 10 MG TAB PO (09:01)
[2017-10-15] MEDS: ENOXAPARIN 40 MG/0.4 ML SYG SC (09:05)
[2017-10-15 10:34] LABS: ANION GAP 15 (8-16); BLOOD UREA NITROGEN 38 mg/dl (7-20); CALCIUM 8.4 mg/dl (8.4-10.2); CARBON DIOXIDE 25 mmol/L (21-31); CHLORIDE 91 mmol/L (97-110); CREATININE 0.64 mg/dl (0.61-1.24); GLUCOSE 199 mg/dl (70-220); POTASSIUM 4.7 mmol/L (3.5-5.1); SODIUM 126 mmol/L (135-144)
[2017-10-15] MEDS: AMLODIPINE 5 MG TAB PO (21:00)
[2017-10-15 23:57] LABS: AADO2 Arterial 599.5 mmHg (7.0-24.0); Allen Test ACCEPTAB; Arterial Base Excess 3.9 mmol/L (-3.0-3); Arterial Blood Gas Oxygen Sat 95.5 mmHG (95.0-98.0); Arterial COHb 0.5 % (0.0-3.0); Arterial Fraction of Oxyhgb 94.8 % (93.0-99.0); Arterial HCO3 28.2 mmol/L (22.0-26.0); Arterial MetHb 0.2 % (0.0-1.5); Arterial Total Hemglobin 14.2 g/dl (12.0-18.0); Arterial pCO2 41.4 mmhg (35-45); Blood Gas IEPAP 15/8; MODE MASK - BIPAP; Site Left Radial
[2017-10-16] MEDS: FUROSEMIDE 20 MG INJ IV ×2 (02:10→17:57)
[2017-10-16] MEDS: PANTOPRAZOLE (EC) 40 MG TAB PO (05:27)
[2017-10-16] MEDS: METHYLPREDNISOLONE 40 MG INJ IV ×3 (05:27→18:00)
[2017-10-16] MEDS: LEVOFLOXACIN 750 MG TABLET PO (05:27)
[2017-10-16 06:52] LABS: ANION GAP 10 (8-16); BLOOD UREA NITROGEN 49 mg/dl (7-20); CALCIUM 8.8 mg/dl (8.4-10.2); CARBON DIOXIDE 29 mmol/L (21-31); CHLORIDE 90 mmol/L (97-110); CREATININE 0.76 mg/dl (0.61-1.24); GLUCOSE 119 mg/dl (70-220); MAGNESIUM 2.3 mg/dl (1.7-2.5); PHOSPHORUS 4.8 mg/dl (2.5-4.9); SODIUM 124 mmol/L (135-144)
[2017-10-16 06:56] LABS: POTASSIUM 5.1 mmol/L (3.5-5.1)
[2017-10-16] MEDS: ALBUTEROL/IPRATROPIUM (NEB) 3 ML AMP HHN ×3 (07:50→19:23)
[2017-10-16] MEDS: TRIMETHOPRIM/SULFAMETHOX (SS) TAB PO (08:54)
[2017-10-16] MEDS: DOCUSATE SODIUM 100 MG CAP PO ×2 (08:54→19:42)
[2017-10-16] MEDS: LACTOBACILLUS RHAMNOSUS CAP PO ×2 (08:54→19:43)
[2017-10-16] MEDS: LORATADINE 10 MG TAB PO (08:55)
[2017-10-16] MEDS: DEMECLOCYCLINE 150 MG TAB PO ×3 (08:55→19:42)
[2017-10-16] MEDS: FUROSEMIDE 20 MG TAB PO (08:58)
[2017-10-16] MEDS: SILDENAFIL 20 MG TAB PO ×3 (09:00→19:43)
[2017-10-16] MEDS: ENOXAPARIN 40 MG/0.4 ML SYG SC (09:03)
[2017-10-16] MEDS: SODIUM CHLORIDE 1 GM TAB PO ×3 (09:35→19:42)
[2017-10-16 15:01] LABS: SODIUM 124 mmol/L (135-144)
[2017-10-16] MEDS: AMLODIPINE 2.5 MG TAB PO (19:42)
[2017-10-17] MEDS: METHYLPREDNISOLONE 40 MG INJ IV ×2 (00:01→06:20)
[2017-10-17 05:34] LABS: AADO2 Arterial 624.7 mmHg (7.0-24.0); Arterial Base Excess 2.2 mmol/L (-3.0-3); Arterial Blood Gas Oxygen Sat 82.7 mmHG (95.0-98.0); Arterial COHb 0.1 % (0.0-3.0); Arterial Fraction of Oxyhgb 82.5 % (93.0-99.0); Arterial HCO3 26.5 mmol/L (22.0-26.0); Arterial MetHb 0.1 % (0.0-1.5); Arterial Total Hemglobin 14.1 g/dl (12.0-18.0); Arterial pCO2 40.3 mmhg (35-45); Blood Gas IEPAP 15/8; MODE MASK - BIPAP; Site Right Brachial
[2017-10-17 06:06] LABS: ADD MAN DIFF? NO
[2017-10-17 06:16] LABS: BASOPHILS % 0.1 % (0.0-2.0); HEMATOCRIT 35.7 % (42.0-52.0); LYMPHOCYTES # 0.7 10^3/ul (0.8-2.9); LYMPHOCYTES % 3.3 % (15.0-51.0); MEAN CORPUSCULAR HEMOGLOBIN 34.7 pg (29.0-33.0); MEAN CORPUSCULAR HGB CONC 36.4 g/dl (32.0-37.0); MEAN CORPUSCULAR VOLUME 95.2 fl (82.0-101.0); MEAN PLATELET VOLUME 10.5 fl (7.4-10.4); MONOCYTE # 0.9 10^3/ul (0.3-0.9); MONOCYTES % 4.3 % (0.0-11.0); NEUTROPHIL # 19.7 10^3/ul (1.6-7.5); NEUTROPHILS % 91.5 % (39.0-77.0); PLATELET COUNT 193 10^3/UL (140-415); RED BLOOD COUNT 3.75 10^6/ul (4.70-6.10); RED CELL DISTRIBUTION WIDTH 11.8 % (11.5-14.5)
[2017-10-17 06:16] LABS: WHITE BLOOD COUNT 21.6 10^3/ul (4.8-10.8)
[2017-10-17] MEDS: PANTOPRAZOLE (EC) 40 MG TAB PO (06:19)
[2017-10-17] MEDS: LEVOFLOXACIN 750 MG TABLET PO (06:19)
[2017-10-17] MEDS: FUROSEMIDE 20 MG INJ IV ×2 (06:20→10:43)
[2017-10-17] MEDS ORDERED: NORepinephrine 8MG/250 ML BAG (07:00)
[2017-10-17] MEDS ORDERED: ETOMIDATE 20 MG INJ (07:00)
[2017-10-17] MEDS ORDERED: SUCCINYLCHOLINE CHLORIDE 100 MG/5 ML SYG IV (07:00)
[2017-10-17 07:17] LABS: LACTIC ACID 3.7 mmol/L (0.5-2.0)
[2017-10-17 07:23] LABS: ANION GAP 15 (8-16); BLOOD UREA NITROGEN 48 mg/dl (7-20); CALCIUM 8.8 mg/dl (8.4-10.2); CARBON DIOXIDE 28 mmol/L (21-31); CHLORIDE 92 mmol/L (97-110); CREATININE 0.65 mg/dl (0.61-1.24); GLUCOSE 142 mg/dl (70-220); MAGNESIUM 2.4 mg/dl (1.7-2.5); PHOSPHORUS 4.2 mg/dl (2.5-4.9); SODIUM 130 mmol/L (135-144)
[2017-10-17 07:27] LABS: POTASSIUM 5.4 mmol/L (3.5-5.1)
[2017-10-17] MEDS: ALBUTEROL/IPRATROPIUM (NEB) 3 ML AMP HHN (08:40)
[2017-10-17] MEDS: LORATADINE 10 MG TAB PO (09:00)
[2017-10-17] MEDS: LACTOBACILLUS RHAMNOSUS CAP PO ×2 (09:00→20:52)
[2017-10-17] MEDS: SILDENAFIL 20 MG TAB PO (09:00)
[2017-10-17] MEDS: DOCUSATE SODIUM 100 MG CAP PO ×2 (09:00→20:52)
[2017-10-17] MEDS: SODIUM CHLORIDE 1 GM TAB PO ×3 (09:00→20:52)
[2017-10-17] MEDS: DEMECLOCYCLINE 150 MG TAB PO ×3 (09:00→20:52)
[2017-10-17 09:21] LABS: AADO2 Arterial 626.6 mmHg (7.0-24.0); Allen Test ACCEPTAB; Arterial Base Excess 1.7 mmol/L (-3.0-3); Arterial Blood Gas Oxygen Sat 75.5 mmHG (95.0-98.0); Arterial COHb 0.5 % (0.0-3.0); Arterial HCO3 26.9 mmol/L (22.0-26.0); Arterial MetHb 0.1 % (0.0-1.5); Arterial Total Hemglobin 14.6 g/dl (12.0-18.0); Arterial pCO2 44.4 mmhg (35-45); Blood Gas PS 8; MODE MASK - BIPAP; Site Right Radial
[2017-10-17] MEDS: ENOXAPARIN 40 MG/0.4 ML SYG SC (10:11)
[2017-10-17] MEDS: METHYLPRED. NA SUCC 250 MG in DEXTROSE 5% 50 ML IV ×2 (10:34→20:58)
[2017-10-17] MEDS ORDERED: FUROSEMIDE 20 MG INJ (10:37)
[2017-10-17] MEDS ORDERED: FENTAnyl 50 MCG/ML VIAL (11:36)
[2017-10-17] MEDS ORDERED: FENTAnyl (DRIP) 1000 mcg/100mL 100 ML IV ×2 (13:44→14:00)
[2017-10-17] MEDS ORDERED: PROPOFOL 100 ML ×2 (13:45→21:58)
[2017-10-17] MEDS ORDERED: PROPOFOL 100 ML IV ×2 (14:00→23:31)
[2017-10-17 14:34] LABS: ANION GAP 13 (8-16); BLOOD UREA NITROGEN 53 mg/dl (7-20); CALCIUM 8.3 mg/dl (8.4-10.2); CARBON DIOXIDE 30 mmol/L (21-31); CHLORIDE 93 mmol/L (97-110); CREATININE 0.85 mg/dl (0.61-1.24); GLUCOSE 177 mg/dl (70-220); SODIUM 131 mmol/L (135-144)
[2017-10-17] MEDS: PROPOFOL 100 ML IV ×2 (14:50→18:35)
[2017-10-17] MEDS: FENTAnyl (DRIP) 1000 mcg/100mL 100 ML IV ×2 (14:51→18:51)
[2017-10-17] MEDS: FENTAnyl 50 MCG/ML VIAL IV ×2 (14:53→15:01)
[2017-10-17] MEDS: SOD CHLORIDE 0.9% 500 ML IV (15:00)
[2017-10-17 15:07] LABS: AADO2 Arterial 609.8 mmHg (7.0-24.0); Allen Test ACCEPTAB; Arterial Base Excess 0.8 mmol/L (-3.0-3); Arterial Blood Gas Oxygen Sat 78.4 mmHG (95.0-98.0); Arterial COHb 0.2 % (0.0-3.0); Arterial Fraction of Oxyhgb 78.1 % (93.0-99.0); Arterial HCO3 27.8 mmol/L (22.0-26.0); Arterial MetHb 0.2 % (0.0-1.5); Arterial Total Hemglobin 13.3 g/dl (12.0-18.0); Arterial pCO2 54.3 mmhg (35-45); MODE VENT - AC; Site Right Radial
[2017-10-17] MEDS: NORepinephrine 8MG/250 ML (PMX 250 ML IV (15:20)
[2017-10-17] MEDS: TRIMETHOPRIM/SULFAMETHOX (SS) TAB PO (15:50)
[2017-10-17] MEDS ORDERED: IPRATROPIUM (HFA) 12.9 GM INHALER INH ×2 (18:00→20:00)
[2017-10-17] MEDS ORDERED: ALBUTEROL HFA 8 GM INHALER INH (18:30)
[2017-10-17] MEDS ORDERED: METHYLPREDNISOLONE 40 MG INJ IV (21:00)
[2017-10-17] MEDS: IPRATROPIUM (HFA) 12.9 GM INHALER INH (21:12)
[2017-10-17] MEDS: ALBUTEROL HFA 8 GM INHALER INH (21:12)
[2017-10-17 21:49] LABS: AADO2 Arterial 611.8 mmHg (7.0-24.0); Allen Test ACCEPTAB; Arterial Base Excess 0 mmol/L (-3.0-3); Arterial Blood Gas Oxygen Sat 75.7 mmHG (95.0-98.0); Arterial COHb 0.3 % (0.0-3.0); Arterial Fraction of Oxyhgb 75.2 % (93.0-99.0); Arterial HCO3 27.2 mmol/L (22.0-26.0); Arterial MetHb 0.3 % (0.0-1.5); Arterial pCO2 54.8 mmhg (35-45); MODE VENT - AC; Site Right Radial
[2017-10-18] MEDS: PHENYLephrine 20MG IN 250 ML 250 ML IV ×2 (00:34→04:41)
[2017-10-18] MEDS: PROPOFOL 100 ML IV ×3 (00:58→14:53)
[2017-10-18] MEDS ORDERED: PROPOFOL 100 ML IV (02:00)
[2017-10-18] MEDS: ALBUTEROL HFA 8 GM INHALER INH ×4 (02:24→19:17)
[2017-10-18] MEDS: IPRATROPIUM (HFA) 12.9 GM INHALER INH ×4 (02:24→19:16)
[2017-10-18] MEDS: FENTAnyl (DRIP) 1000 mcg/100mL 100 ML IV ×3 (04:45→14:53)
[2017-10-18 04:52] LABS: AADO2 Arterial 625.6 mmHg (7.0-24.0); Allen Test ACCEPTAB; Arterial Base Excess 1.2 mmol/L (-3.0-3); Arterial Blood Gas Oxygen Sat 80.2 mmHG (95.0-98.0); Arterial COHb 0.3 % (0.0-3.0); Arterial Fraction of Oxyhgb 79.7 % (93.0-99.0); Arterial MetHb 0.3 % (0.0-1.5); Arterial Total Hemglobin 13.7 g/dl (12.0-18.0); Arterial pCO2 41.9 mmhg (35-45); MODE VENT - AC; Site Left Radial
[2017-10-18 06:21] LABS: WHITE BLOOD COUNT 26.4 10^3/ul (4.8-10.8)
[2017-10-18 06:21] LABS: ABNORMAL IP MESSAGE 1; HEMATOCRIT 35.4 % (42.0-52.0); HEMOGLOBIN 12.5 g/dl (14.0-18.0); MEAN CORPUSCULAR HEMOGLOBIN 34.6 pg (29.0-33.0); MEAN CORPUSCULAR HGB CONC 35.3 g/dl (32.0-37.0); MEAN CORPUSCULAR VOLUME 98.1 fl (82.0-101.0); MEAN PLATELET VOLUME 10.9 fl (7.4-10.4); PLATELET COUNT 199 10^3/UL (140-415); POSITIVE DIFF @See below; RED BLOOD COUNT 3.61 10^6/ul (4.70-6.10); RED CELL DISTRIBUTION WIDTH 11.9 % (11.5-14.5)
[2017-10-18 06:37] LABS: LACTIC ACID 3.8 mmol/L (0.5-2.0)
[2017-10-18 06:39] LABS: ANION GAP 13 (8-16); BLOOD UREA NITROGEN 67 mg/dl (7-20); CALCIUM 8.4 mg/dl (8.4-10.2); CARBON DIOXIDE 28 mmol/L (21-31); CHLORIDE 97 mmol/L (97-110); CREATININE 1.11 mg/dl (0.61-1.24); GLUCOSE 280 mg/dl (70-220); MAGNESIUM 2.7 mg/dl (1.7-2.5); PHOSPHORUS 4.7 mg/dl (2.5-4.9); SODIUM 133 mmol/L (135-144)
[2017-10-18 06:48] LABS: POTASSIUM 5.4 mmol/L (3.5-5.1)
[2017-10-18 06:54] LABS: ADD MAN DIFF? YES
[2017-10-18] MEDS: SOD CHLORIDE 0.9% 1,000 ML IV ×3 (08:28→16:13)
[2017-10-18] MEDS: SOD CHLORIDE 0.9% 500 ML IV (08:29)
[2017-10-18] MEDS: METHYLPRED. NA SUCC 250 MG in DEXTROSE 5% 50 ML IV ×2 (08:29→21:10)
[2017-10-18] MEDS: PANTOPRAZOLE 40 MG INJ IV (08:29)
[2017-10-18] MEDS: DOCUSATE SODIUM 100 MG CAP PO ×2 (08:30→20:03)
[2017-10-18] MEDS: DEMECLOCYCLINE 150 MG TAB PO ×3 (08:30→20:04)
[2017-10-18] MEDS: TRIMETHOPRIM/SULFAMETHOX (SS) TAB PO (08:30)
[2017-10-18] MEDS: LORATADINE 10 MG TAB PO (08:30)
[2017-10-18] MEDS: LACTOBACILLUS RHAMNOSUS CAP PO ×2 (08:30→20:03)
[2017-10-18] MEDS: SODIUM CHLORIDE 1 GM TAB PO ×3 (08:30→20:04)
[2017-10-18] MEDS: PHENYLephrine 40 MG in DEXTROSE 5% 496 ML IV ×2 (08:38→16:13)
[2017-10-18] MEDS: ENOXAPARIN 40 MG/0.4 ML SYG SC (08:39)
[2017-10-18 09:28] LABS: ANISOCYTOSIS 1+ (0-0); BURR CELLS 1+ (0-0); GIANT THROMBO% (M) 1 % (0-0); LYMPHOCYTES #M 0.5 10^3/ul (0.8-2.9); LYMPHOCYTES % (M) 2 % (15-51); MONOCYTE #M 1.5 10^3/ul (0.3-0.9); MONOCYTES % (M) 6 % (0-11); PLATELET ESTIMATE NORMAL; POIKILOCYTOSIS 1+ (0-0); POLYCHROMASIA 3+ (0-0); SEGMENTED NEUTROPHILS (M) % 92 % (39-77); SMUDGE%M 2 % (0-0)
[2017-10-18 09:58] LABS: CHOL/HDL RATIO 3.4 RATIO; HDL CHOLESTEROL 37 mg/dl (30-78); LDL CHOLESTEROL,CALCULATED 62 mg/dl; TRIGLYCERIDES 145 mg/dl (0-149)
[2017-10-18 09:58] LABS: CHOLESTEROL 128 mg/dl (100-200)
[2017-10-18] MEDS ORDERED: DEXTROSE 50% 50 ML SYRINGE IV ×2 (10:00)
[2017-10-18] MEDS ORDERED: GLUCOSE GEL 15 GRAM TUBE BUCCAL (10:00)
[2017-10-18] MEDS ORDERED: GLUCAGON 1 MG INJ IM (10:00)
[2017-10-18] MEDS ORDERED: GLUCOSE GEL 15 GRAM TUBE PO ×2 (10:00)
[2017-10-18 10:04] LABS: HEMOGLOBIN A1C 5.7 % (0-5.9)
[2017-10-18] MEDS: INSULIN ASPART [NOVOLOG] 3 ML PEN SC ×4 (10:48→21:11)
[2017-10-18] MEDS: INSULIN GLARGINE [LANtus] 3 ML PEN SC ×2 (10:49→15:12)
[2017-10-18] MEDS: MIDAZOLAM (DRIP) 50 mg/50 mL 50 ML IV ×4 (11:52→20:09)
[2017-10-18] MEDS ORDERED: VANCOMYCIN IV PER PHARMACY XX (13:30)
[2017-10-18] MEDS: CISATRACURIUM BESYLATE IV* ×2 (13:45→21:58)
[2017-10-18] MEDS: SOD CHLORIDE 0.9% IV* ×2 (13:45→21:58)
[2017-10-18] MEDS: VANCOMYCIN 2 GM in DEXTROSE 5% 500 ML IVPB (14:54)
[2017-10-18] MEDS: ERTAPENEM SODIUM 1 GM in SOD CHLORIDE 0.9% 100 ML IVPB (17:16)
[2017-10-18 18:00] LABS: ANION GAP 9 (8-16); BLOOD UREA NITROGEN 38 mg/dl (7-20); CALCIUM 7.1 mg/dl (8.4-10.2); CARBON DIOXIDE 25 mmol/L (21-31); CHLORIDE 101 mmol/L (97-110); CREATININE 0.78 mg/dl (0.61-1.24); GLUCOSE 315 mg/dl (70-220); MAGNESIUM 2.3 mg/dl (1.7-2.5); PHOSPHORUS 4.1 mg/dl (2.5-4.9); POTASSIUM 5.4 mmol/L (3.5-5.1); SODIUM 130 mmol/L (135-144)
[2017-10-18 18:14] LABS: TROPONIN-I 0.248 ng/ml (0.00-0.12)
[2017-10-18] MEDS: ASPIRIN 300 MG SUPP PR (19:40)
[2017-10-18 20:29] LABS: ADD UMIC YES; UR ASCORBIC ACID NEGATIVE (NEGATIVE); UR BILIRUBIN (Dip) NEGATIVE (NEGATIVE); UR BLOOD (Dip) 1+ mg/dL (NEGATIVE); UR CLARITY CLEAR (CLEAR); UR COLOR YELLOW (YELLOW); UR GLUCOSE (Dip) 3+ mg/dL (NEGATIVE); UR KETONES (Dip) NEGATIVE (NEGATIVE); UR LEUKOCYTE ESTERASE (Dip) NEGATIVE Leu/ul (NEGATIVE); UR NITRITE (Dip) NEGATIVE (NEGATIVE); UR RBC 25 /HPF (0-5); UR SPECIFIC GRAVITY (Dip) 1.024 (1.003-1.030); UR TOTAL PROTEIN (Dip) 1+ mg/dl (NEGATIVE); UR UROBILINOGEN (Dip) NEGATIVE (NEGATIVE); UR WBC 2 /HPF (0-5)
[2017-10-18 20:34] LABS: SODIUM,URINE RANDOM 31 mmol/L (30-90)
[2017-10-18 20:34] LABS: CREATININE,URINE RANDOM 80.68 mg/dl (20-370)
[2017-10-19] MEDS: FENTAnyl (DRIP) 1000 mcg/100mL 100 ML IV ×3 (00:17→18:33)
[2017-10-19] MEDS: SOD CHLORIDE 0.9% 1,000 ML IV ×2 (00:48→08:42)
[2017-10-19] MEDS: PHENYLephrine 40 MG in DEXTROSE 5% 496 ML IV ×2 (00:53→06:54)
[2017-10-19] MEDS: SOD CHLORIDE 0.9% IV* ×4 (00:54→17:18)
[2017-10-19] MEDS: CISATRACURIUM BESYLATE IV* ×4 (00:54→17:18)
[2017-10-19] MEDS: INSULIN ASPART [NOVOLOG] 3 ML PEN SC ×6 (01:12→21:30)
[2017-10-19] MEDS: IPRATROPIUM (HFA) 12.9 GM INHALER INH ×4 (01:19→19:09)
[2017-10-19] MEDS: ALBUTEROL HFA 8 GM INHALER INH ×4 (01:19→19:09)
[2017-10-19] MEDS: ACCU-CHEK XX (01:41)
[2017-10-19] MEDS: VANCOMYCIN 1 GM 250 ML IVPB ×2 (02:40→14:17)
[2017-10-19] MEDS: MIDAZOLAM (DRIP) 50 mg/50 mL 50 ML IV ×4 (02:51→18:32)
[2017-10-19] MEDS: PANTOPRAZOLE 40 MG INJ IV (05:36)
[2017-10-19 05:44] LABS: ADD MAN DIFF? NO
[2017-10-19 06:07] LABS: WHITE BLOOD COUNT 30.7 10^3/ul (4.8-10.8)
[2017-10-19 06:07] LABS: ABNORMAL IP MESSAGE 1; BASOPHILS % 0.1 % (0.0-2.0); HEMATOCRIT 30.6 % (42.0-52.0); HEMOGLOBIN 10.4 g/dl (14.0-18.0); LYMPHOCYTES # 0.8 10^3/ul (0.8-2.9); LYMPHOCYTES % 2.4 % (15.0-51.0); MEAN CORPUSCULAR HEMOGLOBIN 35.4 pg (29.0-33.0); MEAN CORPUSCULAR VOLUME 104.1 fl (82.0-101.0); MEAN PLATELET VOLUME 10.8 fl (7.4-10.4); MONOCYTE # 1.4 10^3/ul (0.3-0.9); MONOCYTES % 4.5 % (0.0-11.0); NEUTROPHIL # 28.1 10^3/ul (1.6-7.5); NEUTROPHILS % 91.4 % (39.0-77.0); PLATELET COUNT 145 10^3/UL (140-415); POSITIVE DIFF @See below; RED BLOOD COUNT 2.94 10^6/ul (4.70-6.10)
[2017-10-19 06:15] LABS: ANION GAP 8 (8-16); BLOOD UREA NITROGEN 28 mg/dl (7-20); CALCIUM 7.3 mg/dl (8.4-10.2); CARBON DIOXIDE 27 mmol/L (21-31); CHLORIDE 100 mmol/L (97-110); CREATININE 0.73 mg/dl (0.61-1.24); GLUCOSE 225 mg/dl (70-220); MAGNESIUM 2.3 mg/dl (1.7-2.5); PHOSPHORUS 3.5 mg/dl (2.5-4.9); POTASSIUM 5.8 mmol/L (3.5-5.1); SODIUM 129 mmol/L (135-144)
[2017-10-19 06:20] LABS: CREATINE KINASE 51 IU/L (23-200)
[2017-10-19 06:22] LABS: AADO2 Arterial 563.9 mmHg (7.0-24.0); Arterial Base Excess -7.1 mmol/L (-3.0-3); Arterial Blood Gas Oxygen Sat 92.3 mmHG (95.0-98.0); Arterial COHb 0 % (0.0-3.0); Arterial Fraction of Oxyhgb 92.1 % (93.0-99.0); Arterial HCO3 23.8 mmol/L (22.0-26.0); Arterial MetHb 0.2 % (0.0-1.5); Arterial Total Hemglobin 13.6 g/dl (12.0-18.0); Arterial pCO2 75.9 mmhg (35-45); MODE VENT - AC; Site A-Line
[2017-10-19 06:25] LABS: LACTIC ACID 1.9 mmol/L (0.5-2.0)
[2017-10-19 06:33] LABS: CK INDEX 8.6
[2017-10-19 06:57] LABS: CK-MB 4.37 ng/ml (0.0-2.4); TROPONIN-I 0.199 ng/ml (0.00-0.12)
[2017-10-19] MEDS: PROPOFOL 100 ML IV (07:39)
[2017-10-19] MEDS: INSULIN GLARGINE [LANtus] 3 ML PEN SC (08:06)
[2017-10-19] MEDS: LORATADINE 10 MG TAB PO (08:19)
[2017-10-19] MEDS: METHYLPRED. NA SUCC 250 MG in DEXTROSE 5% 50 ML IV ×2 (08:19→20:24)
[2017-10-19] MEDS: DEMECLOCYCLINE 150 MG TAB PO ×3 (08:19→21:00)
[2017-10-19] MEDS: DOCUSATE SODIUM 100 MG CAP PO ×2 (08:19→21:00)
[2017-10-19] MEDS: LACTOBACILLUS RHAMNOSUS CAP PO ×2 (08:19→21:00)
[2017-10-19] MEDS: SODIUM CHLORIDE 1 GM TAB PO ×3 (08:20→21:00)
[2017-10-19] MEDS: ASPIRIN 300 MG SUPP PR (08:22)
[2017-10-19] MEDS: ENOXAPARIN 40 MG/0.4 ML SYG SC (08:36)
[2017-10-19 09:39] LABS: POTASSIUM 5.4 mmol/L (3.5-5.1)
[2017-10-19] MEDS ORDERED: [UNRECOGNIZED DRUG - REMARK] XX (11:00)
[2017-10-19] MEDS: VASOPRESSIN 60 UNIT in SOD CHLORIDE 0.9% 57 ML IV ×2 (11:24→20:54)
[2017-10-19] MEDS: PHENYLephrine 80 MG in SOD CHLORIDE 0.9% 250 ML IV (11:38)
[2017-10-19] MEDS: NORepinephrine 32 MG in SOD CHLORIDE 0.9% 218 ML IV ×2 (12:37→18:04)
[2017-10-19] MEDS ORDERED: ARTIFICIAL TEARS 15 ML OPH BOTH EYES (15:00)
[2017-10-19] MEDS ORDERED: FUROSEMIDE 20 MG INJ (15:38)
[2017-10-19] MEDS: FUROSEMIDE 40 MG INJ IV (16:18)
[2017-10-19] MEDS: ERTAPENEM SODIUM 1 GM in SOD CHLORIDE 0.9% 100 ML IVPB (16:41)
[2017-10-19] MEDS: PHENYLephrine 80 MG in SOD CHLORIDE 0.9% 242 ML IV (18:00)
[2017-10-20] MEDS: MIDAZOLAM (DRIP) 50 mg/50 mL 50 ML IV ×2 (00:04→05:18)
[2017-10-20] MEDS: SOD CHLORIDE 0.9% IV* (00:57)
[2017-10-20] MEDS: CISATRACURIUM BESYLATE IV* (00:57)
[2017-10-20] MEDS: IPRATROPIUM (HFA) 12.9 GM INHALER INH (01:23)
[2017-10-20] MEDS: ALBUTEROL HFA 8 GM INHALER INH (01:23)
[2017-10-20] MEDS: INSULIN ASPART [NOVOLOG] 3 ML PEN SC ×2 (01:30→05:30)
[2017-10-20] MEDS: ACCU-CHEK XX (02:24)
[2017-10-20 03:07] LABS: VANCOMYCIN,TROUGH 14.6 ug/ml (10.0-20.0)
[2017-10-20] MEDS: PHENYLephrine 80 MG in SOD CHLORIDE 0.9% 242 ML IV (03:48)
[2017-10-20] MEDS: VANCOMYCIN 1 GM 250 ML IVPB (03:49)
[2017-10-20] MEDS: FENTAnyl (DRIP) 1000 mcg/100mL 100 ML IV (05:14)
[2017-10-20] MEDS: morphine (DRIP) 100 MG/100 ML 100 ML IV (05:49)
[2017-10-20 09:05] LABS: AADO2 Arterial 583.6 mmHg (7.0-24.0); Arterial Base Excess -4.5 mmol/L (-3.0-3); Arterial Blood Gas Oxygen Sat 85.8 mmHG (95.0-98.0); Arterial COHb 0 % (0.0-3.0); Arterial Fraction of Oxyhgb 85.5 % (93.0-99.0); Arterial HCO3 25.5 mmol/L (22.0-26.0); Arterial MetHb 0.3 % (0.0-1.5); Arterial Total Hemglobin 11.9 g/dl (12.0-18.0); Arterial pCO2 74.8 mmhg (35-45); MODE VENT - AC; Site A-Line
[2017-10-20 15:01] LABS: CREATININE, RANDOM URINE 82 mg/dL (20-370); MICROALBUMIN 5.8 mg/dL; MICROALBUMIN/CREATININE RATIO 71 (<30)
== END 2017-10-20 06:25 | disposition expired | DRG 871 ==
LOC: ICU 14:52 → TEL 10-10 07:47 → ICU 10-17 07:12 → E/R 11:01 → ICU 10-05 08:55 → TEL 10-10 19:50
PROVIDERS: Family Medicine
PROC: 5A1945Z Respiratory Ventilation, 24-96 Consecutive Hours (ICD-10-PCS; principal; 2017-10-17)
PROC: 0BH17EZ Insertion of Endotracheal Airway into Trachea, Via Natural or Artificial Opening (ICD-10-PCS; 2017-10-17)
DX: A41.9 Sepsis, unspecified organism (principal); J18.9 Pneumonia, unspecified organism; J96.01 Acute respiratory failure with hypoxia; N17.0 Acute kidney failure with tubular necrosis; I21.4 Non-ST elevation (NSTEMI) myocardial infarction; R65.21 Severe sepsis with septic shock; I11.0 Hypertensive heart disease with heart failure; G92 Toxic encephalopathy; I50.32 Chronic diastolic (congestive) heart failure; E22.2 Syndrome of inappropriate secretion of antidiuretic hormone; M48.56XA Collapsed vertebra, not elsewhere classified, lumbar region, initial encounter for fracture; R65.20 Severe sepsis without septic shock; Z66 Do not resuscitate; Z51.5 Encounter for palliative care; K44.9 Diaphragmatic hernia without obstruction or gangrene; I27.20 Pulmonary hypertension, unspecified; J84.10 Pulmonary fibrosis, unspecified; R59.0 Localized enlarged lymph nodes; D63.8 Anemia in other chronic diseases classified elsewhere; E83.9 Disorder of mineral metabolism, unspecified; E87.5 Hyperkalemia
CPT/HCPCS: 31500; 36415; 36600; 71045; 71250; 80048; 80053; 80061; 80202; 81001; 81003; 82043; 82550; 82553; 82803; 82962; 83036; 83605; 83735; 83880; 83930; 83935; 84100; 84132; 84155; 84295; 84300; 84443; 84484; 84560; 85025; 85610; 85730; 87040; 87081; 87086; 93005; 93308; 94002; 94003; 94640; 94660; 94664; 94770; 96374; 96375; 96376; 99291-25; J1940